=== PATIENT | female | born 1990 | race American Indian/Alaskan Native ===

== ENCOUNTER 2018-05-27 11:34 | Emergency (ER) | payer SELFPAY ==
[2018-05-27 12:55] VITALS: BP 113/67
--- NOTE | 2018-05-27 12:57 | Emergency Department Report ---
Blank Doc - Documentation Documentation: This is a 27-year-old female that presents with psoriasis flareup. Denies any other complaints. This initial assessment diagnostic orders/clinical plan/treatment(s) is/are subject to change based on patient's health status, clinical progression and re- assessment by fellow clinical providers in the ED. Further treatment and workup at subsequent clinical providers discretion. Patient/guardians urged not to elope from ED s their condition may be serious if not clinically assessed and managed. Initial orders include: 1-Patient sent to [facility] for further evaluation and treatment
== END 2018-05-27 13:00 | disposition left against medical advice (07) ==
LOC: ED 11:34
DX: L40.8 Other psoriasis (principal)
CPT/HCPCS: 99281